=== PATIENT | female | born 1950 | race Hispanic/Latino ===

== ENCOUNTER → 2018-11-14 | Day surgery (SDC) | payer MEDICARE ==
[2018-11-12 17:00] LABS: BASOPHILS % 0.4 % (0.0-1.0); EOSINOPHILS # (AUTO) 0.2 (0.0-0.4); EOSINOPHILS % 2.6 % (0.0-6.0); HEMATOCRIT 38.3 % (34.2-44.1); HEMOGLOBIN 12.8 g/dL (12.0-16.0); LYMPHOCYTES # (AUTO) 2.3 (1.0-3.2); LYMPHOCYTES % 27.3 % (18.0-39.1); MEAN CORPUSCULAR HGB CONC 33.4 g/dL (31-35); MEAN CORPUSCULAR VOLUME 92.7 fL (81-99); MONOCYTES # (AUTO) 0.8 (0.2-0.8); NEUTROPHILS % 59.1 % (38.7-80.0); PLATELET COUNT 228 x10e3/uL (140-360); RED BLOOD COUNT 4.13 x10e6/uL (3.6-5.1); RED CELL DISTRIBUTION WIDTH 13.5 % (11.7-14.4)
--- NOTE | 2018-11-12 17:27 | Diagnostic Imaging Report ---
Frontal and lateral views of the chest. HISTORY: PREOP, cystoscopy, UTIs COMPARISON: None available. DISCUSSION: Lungs: Nonspecific prominence of the peribronchial interstitial markings. No evidence of a consolidative pneumonia or pulmonary alveolar edema. Pleura: No pleural effusion or pneumothorax. Heart and mediastinum: The cardiomediastinal silhouette appears unremarkable. Bones and soft tissues: Appear unremarkable. IMPRESSION: 1. Findings which can be seen in the setting of a nonspecific bronchitis. 2. Otherwise, no acute radiographic abnormality. Signed by: Dr. Salvatore Dale D.O., M.M.M. on 11/12/2018 5:23 PM
[~2018-11-14] MED LIST: ACETAMINOPHEN325 M1 PO; BOTULINUM TOXIN TYPE A 100 UNIT VIAL IM ONE; CEFTRIAXONE SOD 1 GM/NS 50 ML 50 ML IV ONE; DEXAMETHASONE SOD PHOS INJ 4 MG/ML VIAL ONE; FOLIC ACID1 MG PO; HYDROCODONE/APAP 10MG-325MG TAB ONE; IOPAMIDOL 610MG/1ML 300 MG/ML VIAL IV ONE; LIDOCAINE HCL 2% LOCAL INJ 5 ML SDV VIAL INJ ONE; METOPROLOL TART25 MG PO; MIDAZOLAM HCL 2 MG/2 ML VIAL ONE; ONDANSETRON HCL INJ 2MG/ML 2ML 2 MG/ML VIAL ONE; PROPOFOL IV EMULSION 10 MG/ML 20 ML VIAL ONE; SEVOFLURANE INHAL SOLN 250 ML PEN BTL ONE
--- OUTSIDE RECORDS SUMMARY | 2018-11-14 06:27 | XMS REPORT ---
Author Author Vicki Ritter [facility] eClinicalWorks Address Unknown Phone Unavailable Care Team Providers Care Medical Screener Name Role Phone Vicki Ritter CP Unavailable Allergies, Adverse Reactions, Alerts Substance Reaction Event Type N.K.D.A. Info Not Available Non Drug Allergy Problems Problem Type Condition Code Onset Dates Condition Status Assessment Inflammatory arthritis M19.90 Active Problem Inflammatory arthritis M19.90 Active Medications Medication Code System Code Instructions Start Date End Date Status Dosage Methotrexate ND 67838017167 2.5mg Orally Once a week Jul 28, 2018 November 25, 2018 Active 4 tabs x 1wk, 6 tabs x 1wk and then take 8 tabs Tylenol Arthritis Pain NDC 0 650 MG Orally every 8 hrs Active 2 tablets as needed Folic Acid ND 71692725368 1 MG Orally Once a day Jul 28, 2018 November 25, 2018 Active 1 tablet Prednisone Taper ND 32316634565 5mg Jul 28, 2018 September 26, 2018 Active 3 tablets for 5 days, 2 tablets for 5 days and then 1 [place] [address]-98 25 MG Orally Once a day as needed Active 1 tablet with food Vital Signs Date/Time: Jul 28, 2018 BMI 31 Index Weight 165.7 lbs Height 61 in Temperature 98.6 F Cardiac Monitoring Heart Rate 84 /min Blood Pressure Diastolic 72 mm Hg Blood Pressure Systolic 110 mm Hg Results No Known Results Summary Purpose eClinicalWorks Submission
--- OUTSIDE RECORDS SUMMARY | 2018-11-14 06:27 | XMS REPORT | Continuity of Care Document ---
Author Author [facility] [place] [facility] Address Unknown Phone Unavailable Problems Problem Status Onset Date Classification Date Reported Comments Source Osteoarthritis involving multiple joints on both sides of body Active Problem 08/06/2018 Beatris Najam Vitamin D deficiency Active Problem 08/06/2018 Beatris Najam Inflammatory arthritis Active Problem 11/08/2018 Dada Puckett Rheumatoid arthritis Active Problem 11/08/2018 Dada Puckett Trigger finger, left middle finger Active Problem 11/08/2018 Dada Puckett Pain of left hand Active Diagnosis 03/07/2018 Beatris Najam Counseling NOS Active Diagnosis 03/07/2018 Beatris Najam Pain in right hand Active Diagnosis 03/07/2018 Beatris Najam Pain, joint, multiple sites Active Diagnosis 03/07/2018 Beatris Najam Medications Medication Details Route Status Patient Instructions Ordering Provider Order Date Source Methotrexate 8 tabs altogether Orally Active 2.5mg Orally Once a week Riya 10/14/2018 Dada Puckett Folic Acid 1 tablet Orally Active 1 MG Orally Once a day Riya 10/14/2018 Dada Puckett Methotrexate 8 tabs Orally Active 2.5mg Orally Once a week Riya 07/28/2018 Dada Puckett Folic Acid 1 tablet Orally Active 1 MG Orally Once a day Riya 07/28/2018 Dada Puckett Prednisone Taper 3 tablets for 5 days, 2 tablets for 5 days and then 1 tablet daily NA Active 5mg Riya 07/28/2018 Dada Puckett Ergocalciferol 1 capsule Orally Active 54187 UNIT Orally once weekly Najam 03/05/2018 Beatris Naykra Tylenol Arthritis Pain 2 tablets as needed Orally Active 650 MG Orally every 8 hrs Riya Dada Puckett Metoprolol Tartrate 1 tablet with food Orally Active 25 MG Orally Once a day as needed Riya Dada Puckett Calcium as directed Orally Active 150 MG Orally Riya Dada Puckett Metoprolol Tartrate 1 tablet with food Orally Active 25 MG Orally Once a day as needed Riya Dada Puckett Vitamin C not defined Orally Active 500 MG Orally Najam Beatris Najam Tylenol 1 tablet as needed Orally Active 325 MG Orally every 4 hrs Najam Beatris Najam Meloxicam 1 tab(s) with food as needed Orally Active 15 MG Orally Once a day Najam Beatris Najam Allergies, Adverse Reactions, Alerts Substance Category Reaction Severity Reaction type Status Date Reported Comments Source N.K.D.A. Adverse Reaction Info Not Available Adverse Reaction Active 11/05/2018 Dada Puckett Immunizations Immunization Date Given Site Status Last Updated Comments Source Results Order Name Results Value Reference Range Date Interpretation Comments Source Vital Signs Vital Sign Value Date Comments Source Weight 163.4 11/05/2018 Dada Puckett Height 61 11/05/2018 Dada Puckett Temperature Oral (F) 97.7 F 11/05/2018 Dada Puckett Heart Rate 80 11/05/2018 Dada Puckett Diastolic (mm Hg) 82 11/05/2018 Dada Puckett Systolic (mm Hg) 140 11/05/2018 Dada Puckett Weight 166.0 10/14/2018 Dada Puckett Height 61 10/14/2018 Dada Puckett Temperature Oral (F) 98.5 F 10/14/2018 Dada Puckett Heart Rate 80 10/14/2018 Dada Puckett Diastolic (mm Hg) 80 10/14/2018 Dada Puckett Systolic (mm Hg) 128 10/14/2018 Dada Puckett Weight 165.7 07/28/2018 Dada Puckett Height 61 07/28/2018 Dada Puckett Temperature Oral (F) 98.6 F 07/28/2018 Dada Puckett Heart Rate 84 07/28/2018 Dada Puckett Diastolic (mm Hg) 72 07/28/2018 Dada Puckett Systolic (mm Hg) 110 07/28/2018 Dada Puckett Height 62 03/05/2018 Beatris Najam Diastolic (mm Hg) 69 03/05/2018 Beatris Najam Systolic (mm Hg) 117 03/05/2018 Beatris Najam Weight 160.0 03/05/2018 Beatris Najam Encounters Location Location Details Encounter Type Encounter Number Reason For Visit Attending Provider ADM Date DC Date Status Source Procedures Procedure Code Date Perfomer Comments Source
--- OUTSIDE RECORDS SUMMARY | 2018-11-14 06:27 | XMS REPORT ---
Author Author Vicki Ritter Organization eClinicalWorks Address Unknown Phone Unavailable Care Team Providers Care Siebel Administrator Name Role Phone Vicki Ritter CP Unavailable Allergies, Adverse Reactions, Alerts Substance Reaction Event Type N.K.D.A. Info Not Available Non Drug Allergy Problems Problem Type Condition Code Onset Dates Condition Status Problem Rheumatoid arthritis M06.9 Active Problem Inflammatory arthritis M19.90 Active Problem Trigger finger, left middle finger M65.332 Active Assessment Inflammatory arthritis M19.90 Active Assessment Trigger finger, left middle finger M65.332 Active Assessment Rheumatoid arthritis M06.9 Active Medications Medication Code System Code Instructions Start Date End Date Status Dosage Folic Acid NDC 98673299213 1 MG Orally Once a day Jul 28, 2018 November 25, 2018 Active 1 tablet Methotrexate NDC 49813897912 2.5mg Orally Once a week Jul 28, 2018 November 25, 2018 Active 4 tabs x 1wk, 6 tabs x 1wk and then take 8 tabs Methotrexate NDC 92131553204 2.5mg Orally Once a week October 14, 2018 Feb 11, 2019 Active 8 tabs altogether Folic Acid NDC 26816390522 1 MG Orally Once a day October 14, 2018 Feb 11, 2019 Active 1 tablet Tylenol Arthritis Pain NDC 0 650 MG Orally every 8 hrs Active 2 tablets as needed Metoprolol Tartrate NDC 18141619829 25 MG Orally Once a day as needed Active 1 tablet with food Vital Signs Date/Time: October 14, 2018 BMI 31.36 Index Weight 166.0 lbs Height 61 in Temperature 98.5 F Cardiac Monitoring Heart Rate 80 /min Blood Pressure Diastolic 80 mm Hg Blood Pressure Systolic 128 mm Hg Results No Known Results Summary Purpose eClinicalWorks Submission
--- OUTSIDE RECORDS SUMMARY | 2018-11-14 06:27 | XMS REPORT ---
Author Author Beatris Griffiths Organization eClinicalWorks Address Unknown Phone Unavailable Care Team Providers Care [employer] Volleyball Coach Name Role Phone Beatris Griffiths CP Unavailable Allergies No Known Allergies Problems Problem Type Condition Code Onset Dates Condition Status Problem Osteoarthritis involving multiple joints on both sides of body M15.9 Active Problem Vitamin D deficiency E55.9 Active Medications No Known Medications Results No Known Results Summary Purpose eClinicalWorks Submission
--- OUTSIDE RECORDS SUMMARY | 2018-11-14 06:27 | XMS REPORT ---
Author Author Vicki Ritter [facility] [place] eClinicalWorks Address Unknown Phone Unavailable Care Team Providers Care Farm Helper Name Role Phone Vicki Ritter CP Unavailable Allergies, Adverse Reactions, Alerts Substance Reaction Event Type N.K.D.A. Info Not Available Non Drug Allergy Problems Problem Type Condition Code Onset Dates Condition Status Problem Rheumatoid arthritis M06.9 Active Problem Inflammatory arthritis M19.90 Active Problem Trigger finger, left middle finger M65.332 Active Assessment Trigger finger, left middle finger M65.332 Active Assessment Rheumatoid arthritis M06.9 Active Medications Medication Code System Code Instructions Start Date End Date Status Dosage Methotrexate NDC 42554524684 2.5mg Orally Once a week Jul 28, 2018 Feb 03, 2019 Active 8 [place] [address]-80 150 MG Orally Active as directed Tylenol Arthritis Pain NDC 0 650 MG Orally every 8 hrs Active 2 tablets as needed Metoprolol Tartrate NDC 24453792997 25 MG Orally Once a day as needed Active 1 tablet with food Folic Acid NDC 75263059934 1 MG Orally Once a day Jul 28, 2018 Active 1 tablet Vital Signs Date/Time: November 05, 2018 BMI 30.87 Index Weight 163.4 lbs Height 61 in Temperature 97.7 F Cardiac Monitoring Heart Rate 80 /min Blood Pressure Diastolic 82 mm Hg Blood Pressure Systolic 140 mm Hg Results No Known Results Summary Purpose eClinicalWorks Submission
--- OUTSIDE RECORDS SUMMARY | 2018-11-14 06:27 | XMS REPORT ---
Author Alexandru Yung Organization eClinicalWorks Address Unknown Phone Unavailable Care Team Providers Care Combat Systems Operator Name Role Phone Alexandru Puckett CP Unavailable Allergies No Known Allergies Problems Problem Type Condition Code Onset Dates Condition Status Problem Inflammatory arthritis M19.90 Active Medications No Known Medications Results No Known Results Summary Purpose eClinicalWorks Submission
--- OUTSIDE RECORDS SUMMARY | 2018-11-14 06:28 | XMS REPORT ---
Author Author Alexandru Puckett Organization eClinicalWorks Address Unknown Phone Unavailable Care Team Providers Care Flue Dust Laborer Name Role Phone Alexandru Puckett CP Unavailable Allergies No Known Allergies Problems Problem Type Condition Code Onset Dates Condition Status Problem Rheumatoid arthritis M06.9 Active Problem Inflammatory arthritis M19.90 Active Problem Trigger finger, left middle finger M65.332 Active Medications No Known Medications Results No Known Results Summary Purpose eClinicalWorks Submission
--- OUTSIDE RECORDS SUMMARY | 2018-11-14 06:28 | XMS REPORT ---
Author [facility] Address Unknown Phone Unavailable Care Team Providers Care Scrip Clerk Name Role Phone PEGGY VIGIL Unavailable Unavailable Problems This patient has no known problems. Allergies, Adverse Reactions, Alerts This patient has no known allergies or adverse reactions. Medications This patient has no known medications. Results Test Description Test Time Test Comments Text Results Atomic Results Result Comments CHEST 2 VIEWS 2018-11-12 17:22:00 [place] [id number] Patient Name: REDDY ZAVALETA MR #: [id number] : 1950 Age/Sex: 68/F Req #: [id number] Adm Physician: Ordered by: PEGGY VIGIL MD Report #: [id number] Location: OR Room/Bed: Procedure: [id number] DX/CHEST 2 VIEWS Exam Date: 11/12/18 Exam Time: 1700 REPORT STATUS: Signed Frontal and lateral views of the chest. HISTORY: PREOP, cystoscopy, UTIs COMPARISON: None available. DISCUSSION: Lungs: Nonspecific prominence of the peribronchial interstitial markings. No evidence of a consolidative pneumonia or pulmonary alveolar edema. Pleura: No pleural effusion or pneumothorax. Heart and mediastinum: The cardiomediastinal silhouette appears unremarkable. Bones and soft tissu es: Appear unremarkable. IMPRESSION: 1. Findings which can be seen in the setting of a nonspecific bronchitis. 2. Otherwise, no acute radiographic abnormality. Signed by: Dr. Ernst Dale D.O., M.M.M. on 11/12/2018 5:23 PM Dictated By: ERNST DALE DO 22 Transcribed By: TYLOR on 11/12/181722 COPY TO: PEGGY VIGIL MD
--- OUTSIDE RECORDS SUMMARY | 2018-11-14 06:28 | XMS REPORT ---
Author Author Beatris Griffiths Organization eClinicalWorks Address Unknown Phone Unavailable Care Team Providers Care Offc Spec Name Role Phone Beatris Griffiths CP Unavailable Allergies, Adverse Reactions, Alerts Substance Reaction Event Type N.K.D.A. Info Not Available Non Drug Allergy Problems Problem Type Condition Code Onset Dates Condition Status Assessment Vitamin D deficiency E55.9 Active Problem Osteoarthritis involving multiple joints on both sides of body M15.9 Active Assessment Pain of left hand M79.642 Active Problem Vitamin D deficiency E55.9 Active Assessment Counseling NOS Z71.9 Active Assessment Osteoarthritis involving multiple joints on both sides of body M15.9 Active Assessment Pain in right hand M79.641 Active Assessment Pain, joint, multiple sites M25.50 Active Medications Medication Code System Code Instructions Start Date End Date Status Dosage Vitamin C [facility] 81528544789 500 MG Orally Active not defined Ergocalciferol [facility] 58063799792 25891 UNIT Orally once weekly Mar 05, 2018 Active 1 capsule Tylenol ND 32409560958 325 MG Orally every 4 hrs Active 1 tablet as needed Meloxicam ND 06609651538 15 MG Orally Once a day Active 1 tab(s) with food as needed Vital Signs Date/Time: Mar 05, 2018 Height 62 in Blood Pressure Diastolic 69 mm Hg Blood Pressure Systolic 117 mm Hg Weight 160.0 lbs Results No Known Results Summary Purpose eClinicalWorks Submission
[2018-11-14 10:10] VITALS: BP 126/77
--- NOTE | 2018-11-14 10:57 | Operative Report ---
DATE OF PROCEDURE: 11/14/2018 SURGEON: Hitesh Rayo MD PREOPERATIVE DIAGNOSES: 1. Refractory urge incontinence. 2. Multiple urinary tract infections. 3. Interstitial cystitis. POSTOPERATIVE DIAGNOSES: 1. Refractory urge incontinence. 2. Multiple urinary tract infections. 3. Interstitial cystitis. PROCEDURE: 1. Cystourethroscopy with hydrodistention (entirely separate procedure for clinical signs and symptoms of interstitial cystitis). 2. Cystourethroscopy with left ureteral catheterization and left retrograde pyelogram (separate procedure for multiple chronic urinary tract infections). 3. Cystourethroscopy with right ureteral catheterization and right retrograde pyelogram. 4. Supervision of fluoroscopy. 5. Interpretation of retrograde pyelography. ANESTHESIA: General. ESTIMATED BLOOD LOSS: Minimal. COMPLICATIONS: None. INDICATIONS FOR PROCEDURE: Ms. Erwin is a very pleasant 68-year-old female with refractory urge incontinence and multiple chronic urinary tract infections. I had extensive discussion of alternatives, risks, and benefits. She elected to proceed with cystoscopy, retrograde problems, hydrodistention, and Botox. She wishes to have the options, alternatives, risks and benefits and she elected to proceed. PROCEDURE IN DETAIL: After informed consent was obtained, the patient was taken to the operative suite, placed supine on the operating table, underwent general anesthesia by the Anesthesia Service, placed in the dorsal lithotomy position, sterilely prepped and draped in standard fashion for cystoscopy. Vaginal atrophy was noted. There was grade 2-3 cystocele. No evidence of masses. A 22.5-Niuean cystoscope inserted per urethra. Normal urethra was noted. Panendoscopy of the bladder revealed multiple scars, small contracted bladder almost end-stage in appearance. Moderate trabeculation. There were no tumors, no stones; however, several red velvety patches seen. There were multiple biopsy sites seen. At this time with an infectious looking bladder, injection of Botox is contraindicated in presence of infection. Hydrodistention formal capacity of only 300 mL. Bilateral retrograde pyelograms were normal. The bladder was then drained. The patient was awakened from anesthesia and transferred to recovery room in excellent condition. Supervision of fluoroscopy interpretation ventriculography: I was present for the entire procedure and supervised fluoroscopy. There was no radiologist present. Attention was turned toward the left and right ureters, which were catheterized and retrograde pyelogram was performed revealing delicate ureter, delicate pelvocaliceal systems. No evidence of filling defects. No evidence of hydronephrosis. IMPRESSION: Normal retrograde pyelograms. MD LAUREL Fatima/MODL /[id number] MTDD
== END | disposition home or self-care (01) ==
LOC: OR 06:08
PROVIDERS: ATTEND Urology
DX: N30.10 Interstitial cystitis (chronic) without hematuria (principal); N39.41 Urge incontinence; N95.2 Postmenopausal atrophic vaginitis; N81.10 Cystocele, unspecified; N32.89 Other specified disorders of bladder; N28.1 Cyst of kidney, acquired; R35.1 Nocturia; I10 Essential (primary) hypertension; G47.33 Obstructive sleep apnea (adult) (pediatric); I25.10 Atherosclerotic heart disease of native coronary artery without angina pectoris; I47.1 Supraventricular tachycardia; Z01.810 Encounter for preprocedural cardiovascular examination; Z01.812 Encounter for preprocedural laboratory examination; Z01.818 Encounter for other preprocedural examination
CPT/HCPCS: 36415; 52260; 52287; 71046; 74420; 85025; 88112; 93005; C1758; J0696; J1100; J2001; J2250; J2405; J2704; Q9967; 88305; J0587

== ENCOUNTER 2020-05-19 16:26 | Emergency (ER) | payer MEDICARE ==
[~2020-05-19] VITALS: Ht 165.1 cm; Wt 72.6 kg
[~2020-05-19 16:26] MED LIST changes: -BOTULINUM TOXIN TYPE A 100 UNIT VIAL IM ONE; -CEFTRIAXONE SOD 1 GM/NS 50 ML 50 ML IV ONE; -DEXAMETHASONE SOD PHOS INJ 4 MG/ML VIAL ONE; -HYDROCODONE/APAP 10MG-325MG TAB ONE; -IOPAMIDOL 610MG/1ML 300 MG/ML VIAL IV ONE; -LIDOCAINE HCL 2% LOCAL INJ 5 ML SDV VIAL INJ ONE; -MIDAZOLAM HCL 2 MG/2 ML VIAL ONE; -ONDANSETRON HCL INJ 2MG/ML 2ML 2 MG/ML VIAL ONE; -PROPOFOL IV EMULSION 10 MG/ML 20 ML VIAL ONE; -SEVOFLURANE INHAL SOLN 250 ML PEN BTL ONE
[2020-05-19 17:23] LABS: BASOPHILS % 0.2 % (0.0-1.0); EOSINOPHILS # (AUTO) 0.1 (0.0-0.4); EOSINOPHILS % 2.2 % (0.0-6.0); HEMATOCRIT 33.4 % (34.2-44.1); HEMOGLOBIN 11.6 g/dL (12.0-16.0); LYMPHOCYTES # (AUTO) 1.3 (1.0-3.2); LYMPHOCYTES % 20.3 % (18.0-39.1); MEAN CORPUSCULAR HEMOGLOBIN 32.2 pg (28-32); MEAN CORPUSCULAR HGB CONC 34.7 g/dL (31-35); MEAN CORPUSCULAR VOLUME 92.8 fL (81-99); MONOCYTES # (AUTO) 0.8 (0.2-0.8); MONOCYTES % 12.2 % (4.4-11.3); NEUTROPHILS # (AUTO) 4.2 (2.1-6.9); NEUTROPHILS % 64.6 % (38.7-80.0); PLATELET COUNT 177 x10e3/uL (140-360); RED CELL DISTRIBUTION WIDTH 14.5 % (11.7-14.4)
[2020-05-19 17:24] LABS: CLARITY,URINE CLEAR (CLEAR); COLOR,URINE YELLOW (YELLOW); LEUKOCYTE ESTERASE ,URINE SMALL (NEGATIVE); NITRITE,URINE NEGATIVE (NEGATIVE); PROTEIN,URINE DIPSTICK NEGATIVE (NEGATIVE)
[2020-05-19 17:25] LABS: KETONES,URINE NEGATIVE (NEGATIVE)
[2020-05-19 17:41] LABS: ALANINE AMINOTRANSFERASE 45 IU/L (0-55); ALBUMIN/GLOBULIN RATIO 1.2 (0.8-2.0); ALKALINE PHOSPHATASE 72 IU/L (40-150); ANION GAP 11.5 mmol/L (8-16); BLOOD UREA NITROGEN 19 mg/dL (7-26); BUN/CREATININE RATIO 26 (6-25); CALCIUM 8.4 mg/dL (8.4-10.2); CARBON DIOXIDE 24 mmol/L (22-29); CHLORIDE 106 mmol/L (98-107); CREATININE, SERUM 0.74 mg/dL (0.57-1.11); EST GLOMERULAR FILTRATION RATE > 60 ML/MIN (60-); GLUCOSE 104 mg/dL (74-118); LIPASE 23 U/L (8-78); POTASSIUM 3.5 mmol/L (3.5-5.1); SODIUM 138 mmol/L (136-145)
[2020-05-19 17:44] LABS: EPITHELIAL CELLS,URINE FEW /LPF; WBC,URINE (MAN) 0-5 /HPF (0-5)
[2020-05-19 19:44] VITALS: BP 158/88
== END 2020-05-19 19:47 | disposition home or self-care (01) ==
LOC: ER 16:32
DX: R30.0 Dysuria (principal); R10.30 Lower abdominal pain, unspecified
CPT/HCPCS: 36415; 74176; 80053; 81001; 83690; 85025; 99284